=== PATIENT | female | born 1980 | race Caucasian/White ===

== ENCOUNTER 2018-08-17 10:11 | Emergency (ER) | payer OTHER, SELFPAY ==
[2018-08-17 10:17] VITALS: BP 117/82; PULSE 62; RESP 12; TEMP 36.7; O2SAT 98
[2018-08-17 10:29] LABS: Bilirubin Negative (Negative); Blood Moderate (Negative); Clarity Sl Cloudy; Glucose Negative (Negative); Ketones Negative (Negative); Leukocyte Esterase Moderate (Negative); Nitrite Negative (Negative); Specific Gravity 1.015 (1.005-1.025); Urobilinogen 0.2 EU/dL (Up TO 0.2); pH 8.5 (5-8)
--- NOTE | 2018-08-17 10:39 | W.ED.GENAD ---
Discharge Plan Disposition Patient Disposition: HOME Condition: Good Discharge Details Chief Complaint: Urinary Clinical Impression: Acute UTI Primary Care Provider: None,None ED Provider: Eric Griffin Home Meds and New Rx's Prescriptions: New nitrofurantoin monohyd/m-cryst [Macrobid] 100 mg capsule 100 mg PO Q12H Qty: 9 RF: 0 Continued levothyroxine [Synthroid] 75 mcg Tablet 75 mcg PO DAILY RF: 0 Discharge Instructions Instructions: Urinary Tract Infection in Women (ED) Additional Instructions: Return to the ED as needed for any worsening of symptoms or further concerns. Otherwise take medications as prescribed and stay well hydrated. If not improving follow up with your primary care provider for reassessment Referrals: Primary Care Provider [Outside] (As needed for reassessmentAs needed for reassessment) Discharge Data Discharge Date/Time-TO BE ENTERED AT DEPARTURE: 08/17/18 11:35 Medical Decision Making Patient presenting the emergency department for chief complaint of burning urination that started yesterday. She states over the course the last 24 hours she is developed some suprapubic pain and overall not felt well. Patient denies any fever chills, nausea vomiting, or other systemic symptoms. Physical exam shows no CVA tenderness, mild suprapubic tenderness, otherwise unremarkable exam. Urinalysis was reviewed and shows significant leukocyte esterase, moderate amount of blood, RBCs and WBCs 20-50 with few bacteria present. Urine culture was reflexed which I agree with. Pending culture patient placed upon Macrobid and Pyridium. Return precautions were discussed. HPI General Mode of arrival: ambulatory. Date/Time Provider Initiated Documentation: 08/17/18 10:13. Limitations to Documentation: no limitations. Information obtained by: patient and RN notes reviewed. History of Present Illness 38 year old F presents to the emergency department with the chief complaint of burning urination, and superpubic pain, with intensity rated at 4. Quality is described as burning, and is localized to the genitals. Patient started experiencing this day(s) (1) and it has been constant. Patient did receive the following treatments prior to arrival, none Related Data Home Medications Medication Instructions Recorded Confirmed levothyroxine [Synthroid] 75 mcg PO DAILY 08/17/18 08/17/18 nitrofurantoin monohyd/m-cryst 100 mg PO Q12H #9 cap 08/17/18 [Macrobid] Previous Rx's Medication Instructions Recorded nitrofurantoin monohyd/m-cryst 100 mg PO Q12H #9 cap 08/17/18 [Macrobid] Allergies Allergy/AdvReac Type Severity Reaction Status Date / Time No Known Allergies Allergy Unverified 08/17/18 10:19 General Stated Complaint: Urinary TERI: 3 Review of Systems Constitutional Denies chills, Denies fever(s), Denies headache(s) and Denies malaise ENT Denies headache(s) Gastrointestinal Denies constipation, Denies diarrhea, Denies nausea and Denies vomiting Genitourinary Denies hematuria, Reports dysuria, Denies flank pain, Denies urinary incontinence, Denies urinary hesitancy, Denies urinary urgency, Denies vaginal discharge, Denies vaginal odor and Denies vaginal pruritus Neurologic Denies headache(s) PFS Social History Smoking/Tobacco Use Status: Never Alcohol Intake: never Drug use: Never Substance use type: does not use Do you feel safe at home: Yes Do you feel safe in your relationship?: Yes Exam Const General: cooperative, healthy appearing, comfortable and no acute distress Nutritional Appearance: average body habitus Orientation: alert and oriented x3 Resp Effort & Inspection: normal respiratory effort and able to speak in complete sentences Auscultation: clear to auscultation bilaterally Cardio Rate: regular rate Rhythm: regular rhythm Heart Sounds: S2 normal GI Inspection: normal to inspection Palpation: soft, no guarding, not rigid and tender suprapubicly Auscultation: normal bowel sounds Back/Spine/Pelvis Back: no CVA tenderness Course Vital Signs Temperature 36.7 C 08/17/18 10:17 Pulse 62 08/17/18 10:17 Respiratory Rate 12 08/17/18 10:17 Blood Pressure 117/82 08/17/18 10:17 Pulse Oximetry 98 08/17/18 10:17 Temperature 36.7 C 08/17/18 10:17 Temperature Source Temporal Artery Scan 08/17/18 10:17 Pulse 62 08/17/18 10:17 Respiratory Rate 12 08/17/18 10:17 Respiratory Effort Non-Labored 08/17/18 10:20 Blood Pressure 117/82 08/17/18 10:17 Blood Pressure Position Sitting 08/17/18 10:17 Pulse Oximetry 98 08/17/18 10:17 Oxygen Delivery Method Room Air 08/17/18 10:17 Oxygen Flow Rate 0 08/17/18 10:17 Pain Level 4 08/17/18 10:20
[2018-08-17 10:43] LABS: Bacteria Few HPF (Negative); C & S Indicated? Yes; Casts Negative LPF (Negative); Crystals Negative HPF (Negative); Epithelial Cells Few HPF (Negative); Mucus Negative (Negative); RBC 20-50 (0-2); WBC 20-50 HPF (0-5)
--- NOTE | 2018-08-17 10:43 | ED.GENADUL_ITS ---
Discharge Plan Disposition Patient Disposition: HOME Condition: Good Discharge Details Chief Complaint: Urinary Clinical Impression: Acute UTI Primary Care Provider: None,None ED Provider: Eric Griffin Home Meds and New Rx's Prescriptions: New nitrofurantoin monohyd/m-cryst [Macrobid] 100 mg capsule 100 mg PO Q12H Qty: 9 RF: 0 Continued levothyroxine [Synthroid] 75 mcg Tablet 75 mcg PO DAILY RF: 0 Discharge Instructions Instructions: Urinary Tract Infection in Women (ED) Additional Instructions: Return to the ED as needed for any worsening of symptoms or further concerns. Otherwise take medications as prescribed and stay well hydrated. If not improving follow up with your primary care provider for reassessment Referrals: Primary Care Provider [Outside] (As needed for reassessmentAs needed for reassessment) Discharge Data Discharge Date/Time-TO BE ENTERED AT DEPARTURE: 08/17/18 11:35 Medical Decision Making Patient presenting the emergency department for chief complaint of burning urination that started yesterday. She states over the course the last 24 hours she is developed some suprapubic pain and overall not felt well. Patient denies any fever chills, nausea vomiting, or other systemic symptoms. Physical exam s hows no CVA tenderness, mild suprapubic tenderness, otherwise unremarkable exam. Urinalysis was reviewed and shows significant leukocyte esterase, moderate amount of blood, RBCs and WBCs 20-50 with few bacteria present. Urine culture was reflexed which I agree with. Pending culture patient placed upon Macrobid and Pyridium. Return precautions were discussed. HPI General Mode of arrival: ambulatory . Date/Time Provider Initiated Documentation: 08/17/18 10:13 . Limitations to Documentation: no limitations . Information obtained by: patient and RN notes reviewed . History of Present Illness 38 year old F presents to the emergency department with the chief complaint of burning urination, and superpubic pain, with intensity rated at 4. Quality is described as burning, and is localized to the genitals. Patient started experiencing this day(s) (1) and it has been constant. Patient did receive the following treatments prior to arrival, none Related Data Home Medications Medication Instructions Recorded Confirmed levothyroxine [Synthroid] 75 mcg PO DAILY 08/17/18 08/17/18 nitrofurantoin monohyd/m-cryst 100 mg PO Q12H #9 cap 08/17/18 [Macrobid] Previous Rx's Medication Instructions Recorded nitrofurantoin monohyd/m-cryst 100 mg PO Q12H #9 cap 08/17/18 [Macrobid] Allergies Allergy/AdvReac Type Severity Reaction Status Date / Time No Known Allergies Allergy Unverified 08/17/18 10:19 General Stated Complaint: Urinary TERI: 3 Review of Systems Constitutional Denies chills, Denies fever(s), Denies headache(s) and Denies malaise ENT Denies headache(s) Gastrointestinal Denies constipation, Denies diarrhea, Denies nausea and Denies vomiting Genitourinary Denies hematuria, Reports dysuria, Denies flank pain, Denies urinary incontinence, Denies urinary hesitancy, Denies urinary urgency, Denies vaginal discharge, Denies vaginal odor and Denies vaginal pruritus Neurologic Denies headache(s) PFSH Social History Smoking/Tobacco Use Status: Never Alcohol Intake: never Drug use: Never Substance use type: does not use Do you feel safe at home: Yes Do you feel safe in your relationship?: Yes Exam Const General: cooperative, healthy appearing, comfortable and no acute distress Nutritional Appearance: average body habitus Orientation: alert and oriented x3 Resp Effort & Inspection: normal respiratory effort and able to speak in complete sentences Auscultation: clear to auscultation bilaterally Cardio Rate: regular rate Rhythm: regular rhythm Heart Sounds: S2 normal GI Inspection: normal to inspection Palpation: soft, no guarding, not rigid and tender suprapubicly Auscultation: normal bowel sounds Back/Spine/Pelvis Back: no CVA tenderness Course Vital Signs Temperature 36.7 C 08/17/18 10:17 Pulse 62 08/17/18 10:17 Respiratory Rate 12 08/17/18 10:17 Blood Pressure 117/82 08/17/18 10:17 Pulse Oximetry 98 08/17/18 10:17 Temperature 36.7 C 08/17/18 10:17 Temperature Source Temporal Artery Scan 08/17/18 10:17 Pulse 62 08/17/18 10:17 Respiratory Rate 12 08/17/18 10:17 Respiratory Effort Non-Labored 08/17/18 10:20 Blood Pressure 117/82 06/23/19 10:17 Blood Pressure Position Sitting 08/17/18 10:17 Pulse Oximetry 98 08/17/18 10:17 Oxygen Delivery Method Room Air 08/17/18 10:17 Oxygen Flow Rate 0 08/17/18 10:17 Pain Level 4 08/17/18 10:20
[2018-08-17] MEDS: MacroBID 100 MG CAP PO (11:32)
[2018-08-17] MEDS: Phenazopyridine 200 MG TAB PO (11:32)
[2018-08-17 11:35] VITALS: BP 117/82; PULSE 62; RESP 12; TEMP 36.7; O2SAT 98
== END 2018-08-17 11:35 | disposition home or self-care (01) ==
LOC: ER 11:28
PROVIDERS: Emergency Provider Nurse Practitioner Family
DX: N39.0 Urinary tract infection, site not specified (principal)
CPT/HCPCS: 81025; 87077; 99283; 81003; 81015; 87086; 87186